=== PATIENT | male | born 1995 | race Caucasian/White ===

== ENCOUNTER 2017-02-13 03:32 | Emergency (ER) | payer OTHER ==
[~2017-02-13] VITALS: Ht 182.9 cm; Wt 104.3 kg
[~2017-02-13 03:32] MED LIST: APAP/CODEINE ELI5 M1 OR; NORCO 5-325 TA1 EACH PO; PEPCID40 MG PO; PROAIR HFA8.5 GM IH; TESSALON PERLE100 MG PO; ZITHROMAX250 MG PO; ZOFRAN ODT4 MG PO; ZPAK PO
[2017-02-13 04:12] LABS: ABSOLUTE NEUTROPHILS 6.2 thou/uL (1.4-8.2); BASOPHILS 0.4 % (0.0-2.0); EOSINOPHILS 1.1 % (0.0-3.0); HEMATOCRIT 42.8 % (42.0-52.0); LYMPHOCYTES 13.2 % (24.0-44.0); MCV 82.8 fL (80.0-100.0); MONOCYTES 6.2 % (1.0-8.0); PLATELET COUNT 171 thou/uL (150-400); POLYS 79.1 % (36.0-66.0); RBC 5.17 mil/uL (4.50-6.00); RDW 12.9 % (10.5-14.5); WBC 7.9 thou/uL (4.0-11.0)
[2017-02-13 04:14] LABS: MANUAL DIFF NO
[2017-02-13] MEDS ORDERED: NOHOMEMEDICATIONS (04:17)
[2017-02-13 04:19] LABS: CALCIUM 9.2 mg/dL (8.5-10.1); POTASSIUM 3.6 mmol/L (3.5-5.1)
[2017-02-13 04:24] LABS: ALBUMIN 4.1 g/dL (3.4-5.0); TOTAL PROTEIN 7.3 g/dL (6.4-8.2)
[2017-02-13 04:47] LABS: URINE BILIRUBIN 1+ (Negative); URINE BLOOD NEGATIVE (Negative); URINE COLOR YELLOW; URINE GLUCOSE-RANDOM* NEGATIVE (Negative); URINE KETONES NEGATIVE (Negative); URINE LEUKOCYTES-REFLEX NEGATIVE (Negative); URINE PROTEIN (DIPSTICK) NEGATIVE (Negative)
[2017-02-13] MEDS ORDERED: ZOFRAN ODT8 MG PO (04:57)
[2017-02-13] MEDS ORDERED: TRAMADOL 50 MG50 MG PO (04:57)
[2017-02-13] MEDS ORDERED: PRILOSEC 20 MG20 MG PO (04:57)
[2017-02-13 04:58] LABS: ICTOTEST (BILI CONFIRMATORY) Positive (Negative)
[2017-02-13 05:53] VITALS: BP 125/69
== END 2017-02-13 04:58 | disposition home or self-care (01) ==
LOC: ER 03:32
PROVIDERS: Emergency Medicine
DX: R10.13 Epigastric pain (principal); R11.2 Nausea with vomiting, unspecified; R19.7 Diarrhea, unspecified; F17.210 Nicotine dependence, cigarettes, uncomplicated

== ENCOUNTER → 2018-11-10 | Outpatient (CLI) | payer OTHER ==
[~2018-11-10] MED LIST changes: +NOHOMEMEDICATIONS; +PRILOSEC 20 MG20 MG PO; +TRAMADOL 50 MG50 MG PO; +ZOFRAN ODT8 MG PO
== END ==
LOC: RAD 15:35
DX: M25.531 Pain in right wrist (principal)

== ENCOUNTER → 2018-11-27 | Outpatient (CLI) | payer OTHER | LOC: CAT 14:17 | DX: S69.91XA Unspecified injury of right wrist, hand and finger(s), initial encounter (principal); X58.XXXA Exposure to other specified factors, initial encounter; Y93.89 Activity, other specified; Y92.89 Other specified places as the place of occurrence of the external cause; Y99.8 Other external cause status ==